=== PATIENT | male | born 1945 | race African-American/Black ===

== ENCOUNTER 2019-02-17 17:24 | Inpatient (IN) | payer MEDICARE, MEDICAID ==
[~2019-02-17] VITALS: Ht 175.3 cm; Wt 64.0 kg
[2019-02-17] MEDS ORDERED: METHYLPREDNISOLONE SOD SUCC 125 MG/2 ML VIAL IV STA (17:44)
[2019-02-17] MEDS ORDERED: ALBUTEROL (0.083%) 2.5MG/3ML NEB HHN STA ×2 (17:44→21:53)
[2019-02-17] MEDS ORDERED: IPRATROPIUM BROMIDE (0.02%) 0.5MG/2.5ML NEB HHN STA (17:44)
[2019-02-17] MEDS ORDERED: SODIUM CHLORIDE 0.9% 1000ML BAG (SEPSIS BOLUS) IV ONE (17:45)
[2019-02-17] MEDS ORDERED: LEVOFLOXACIN 750MG PREMIX 150 ML IV ONE (17:45)
[2019-02-17 18:21] LABS: BASOPHILS % 0.6 % (0.0-2.0); EOSINOPHILS % 0.1 % (0.0-5.0); HEMATOCRIT. 36.7 % (42.0-52.0); LYMPHOCYTES % 10.2 % (20.0-50.0); MEAN CORPUSCULAR HEMOGLOBIN 28.4 pg (28.0-32.0); MEAN CORPUSCULAR VOLUME 87.2 fL (80.0-94.0); MEAN PLATELET VOLUME 8.3 fl (7.4-10.4); MONOCYTES % 10.9 % (2.0-8.0); NEUTROPHILS % 78.2 % (40.0-76.0); PLATELET 206 x1000/uL (130-400); RED BLOOD CELL COUNT 4.21 mill/uL (4.7-6.1); RED CELL DISTRIBUTION WIDTH 14.6 % (11.6-14.6)
[2019-02-17 18:28] LABS: INR 1.1; PARTIAL THROMBOPLASTIN TIME 31.5 sec (23.4-31.0); PROTHROMBIN TIME 11.7 sec (9.6-11.0)
[2019-02-17 18:31] LABS: CHLORIDE 99 mEq/L (98-107)
[2019-02-17] MEDS ORDERED: ALBU2.5V13 IH (23:43)
[2019-02-17] MEDS ORDERED: VERA80TA2 PO (23:43)
[2019-02-17] MEDS ORDERED: ASPI-1158 PO (23:43)
[2019-02-18] VITALS (7 sets, daily range): BP systolic 113–148; BP diastolic 59–84
[2019-02-18] MEDS ORDERED: ONDANSETRON HCL 4MG/2ML INJ IV PRN (00:30)
[2019-02-18] MEDS ORDERED: ACETAMINOPHEN 325MG TABLET PO PRN (00:30)
[2019-02-18] MEDS ORDERED: IPRATROPIUM/ALBUTEROL 0.5-3(2.5)MG/3ML NEB HHN PRN (00:30)
[2019-02-18 03:04] LABS: HEMATOCRIT. 35.9 % (42.0-52.0); HEMOGLOBIN. 11.9 g/dL (14.0-18.0); MEAN CORPUSCULAR HEMOGLOBIN 28.7 pg (28.0-32.0); MEAN CORPUSCULAR VOLUME 86.9 fL (80.0-94.0); MEAN PLATELET VOLUME 8.5 fl (7.4-10.4); PLATELET 177 x1000/uL (130-400); RED BLOOD CELL COUNT 4.14 mill/uL (4.7-6.1); RED CELL DISTRIBUTION WIDTH 14.5 % (11.6-14.6)
[2019-02-18 03:21] LABS: CREATINE KINASE MB FRACTION 3.7 ng/mL (0.5-3.6)
[2019-02-18 03:56] LABS: HEPATITIS B SURFACE ANTIGEN NEGATIVE
[2019-02-18 04:26] LABS: HEPATITIS A AB IGM NEGATIVE (NEGATIVE)
[2019-02-18] MEDS: IPRATROPIUM/ALBUTEROL 0.5-3(2.5)MG/3ML NEB HHN SCH ×5 (04:27→21:32)
[2019-02-18] MEDS: METHYLPREDNISOLONE SOD SUCC 40 MG/ML VIAL IV SCH ×3 (05:25→21:12)
[2019-02-18] MEDS: PANTOPRAZOLE 40MG DR TABLET PO SCH (05:25)
[2019-02-18 05:41] LABS: PLATELET ESTIMATE NORMAL
[2019-02-18] MEDS: BUDESONIDE 0.5MG/2ML NEB HHN SCH ×2 (09:08→21:32)
[2019-02-18] MEDS: ENOXAPARIN 40MG/0.4ML SYR SUBCUT SCH (09:52)
[2019-02-18 10:34] LABS: CLARITY URINE CLEAR (CLEAR); COLOR URINE YELLOW (YELLOW); KETONES URINE TRACE (NEGATIVE); LEUKOCYTE ESTERASE URINE NEGATIVE (NEGATIVE); NITRITE URINE NEGATIVE (NEGATIVE); OCCULT BLOOD URINE TRACE (NEGATIVE); PH URINE 6.5 (4.5-8.0); PROTEIN URINE NEGATIVE (NEGATIVE)
[2019-02-18 11:51] LABS: *BARBITURATES SCREEN URINE NEGATIVE (NEGATIVE); *BENZODIAZEPINES SCREEN URINE NEGATIVE (NEGATIVE)
[2019-02-18 11:52] LABS: *COCAINE SCREEN URINE NEGATIVE (NEGATIVE); CANNABINOID URINE SCREEN NEGATIVE (NEGATIVE); METHADONE URINE SCREEN PRESUMTIVE POSITIVE (NEGATIVE); OPIATES URINE SCREEN PRESUMTIVE POSITIVE (NEGATIVE); PHENCYCLIDINE URINE SCREEN NEGATIVE (NEGATIVE)
[2019-02-18 12:03] LABS: *AMPHETAMINES SCREEN URINE NEGATIVE (NEGATIVE)
[2019-02-18 12:12] LABS: CREATINE KINASE 589 IU/L (39-308)
[2019-02-18 12:13] LABS: CREATINE KINASE MB FRACTION 3.2 ng/mL (0.5-3.6)
[2019-02-18] MEDS ORDERED: BISACODYL 5MG TABLET PO PRN (15:30)
[2019-02-18] MEDS ORDERED: LACTULOSE 20G/30ML UDC PO NR (15:39)
[2019-02-18] MEDS: DOCUSATE SODIUM 250MG CAPSULE PO SCH (16:35)
[2019-02-19] VITALS: BP 149/80
[2019-02-19] MEDS: IPRATROPIUM/ALBUTEROL 0.5-3(2.5)MG/3ML NEB HHN SCH ×6 (01:55→21:13)
[2019-02-19 04:00] VITALS: BP 150/81
[2019-02-19] MEDS: METHYLPREDNISOLONE SOD SUCC 40 MG/ML VIAL IV SCH (06:43)
[2019-02-19] MEDS: PANTOPRAZOLE 40MG DR TABLET PO SCH (06:43)
[2019-02-19 08:00] VITALS: BP 140/59
[2019-02-19] MEDS: BUDESONIDE 0.5MG/2ML NEB HHN SCH ×3 (08:50→21:13)
[2019-02-19] MEDS: ENOXAPARIN 40MG/0.4ML SYR SUBCUT SCH (09:29)
[2019-02-19] MEDS: DOCUSATE SODIUM 250MG CAPSULE PO SCH (09:29)
[2019-02-19 12:00] VITALS: BP 125/72
[2019-02-19 16:00] VITALS: BP 149/85
[2019-02-19] MEDS ORDERED: METHADONE HCL 10MG TABLET PO SCH (17:30)
[2019-02-19 20:00] VITALS: BP 145/80
[2019-02-20] VITALS (13 sets, daily range): BP systolic 124–171; BP diastolic 64–129
[2019-02-20] MEDS: IPRATROPIUM/ALBUTEROL 0.5-3(2.5)MG/3ML NEB HHN SCH ×7 (01:01→21:20)
[2019-02-20 04:14] LABS: BG BASE EXCESS 0.5 mmol/L (-2.0-2.0); BG CARBOXYHEMOGLOBIN 0.6 % (0.5-1.5); BG FRACTION INSPIRED OXYGEN 100; BG HCO3 ACT 29.1 mmol/L (22.0-26.0); BG METHEMOGLOBIN 0.2 % (0.0-1.5); BG OXYHEMOGLOBIN 98.2 % (94.0-97.0); BG PCO2 65.3 mmHg (35.0-45.0); BG PH 7.267 (7.350-7.450); BG PO2 180.8 mmHg (75.0-100.0); BG SAMPLE SITE LEFT RADIAL; BG TOTAL HEMOGLOBIN 14.2 g/dL (12.0-18.0); BG VENT MODE MASK - SIMPLE
[2019-02-20] MEDS: ENOXAPARIN 40MG/0.4ML SYR SUBCUT SCH (08:45)
[2019-02-20] MEDS: FAMOTIDINE 20MG TABLET PO SCH ×2 (08:45→21:23)
[2019-02-20] MEDS: DOCUSATE SODIUM 250MG CAPSULE PO SCH (08:45)
[2019-02-20] MEDS: BUDESONIDE 0.5MG/2ML NEB HHN SCH ×2 (08:52→21:20)
[2019-02-20] MEDS ORDERED: PREDNISONE 20MG TABLET PO SCH (09:00)
[2019-02-20] MEDS ORDERED: METHADONE HCL 5MG TABLET PO SCH (09:00)
[2019-02-20] MEDS: METHYLPREDNISOLONE SOD SUCC 125 MG/2 ML VIAL IV SCH ×4 (11:30→22:02)
[2019-02-20] MEDS ORDERED: TERBUTALINE SULFATE 1MG/ML VIAL SUBCUT SCH (12:00)
[2019-02-20 14:47] LABS: HEMOGLOBIN. 13.6 g/dL (14.0-18.0); MEAN CORPUSCULAR HEMOGLOBIN 28.4 pg (28.0-32.0); MEAN CORPUSCULAR VOLUME 87.4 fL (80.0-94.0); MEAN PLATELET VOLUME 8.4 fl (7.4-10.4); PLATELET 233 x1000/uL (130-400); RED CELL DISTRIBUTION WIDTH 14.5 % (11.6-14.6)
[2019-02-20 15:03] LABS: CHLORIDE 102 mEq/L (98-107)
[2019-02-20 19:33] LABS: PLATELET ESTIMATE NORMAL
[2019-02-20] MEDS: AMLODIPINE 5MG TABLET PO SCH (21:26)
[2019-02-21] VITALS (12 sets, daily range): BP systolic 126–169; BP diastolic 47–131
[2019-02-21] MEDS: IPRATROPIUM/ALBUTEROL 0.5-3(2.5)MG/3ML NEB HHN SCH ×5 (00:36→20:42)
[2019-02-21] MEDS: CLONIDINE 0.1MG TABLET PO PRN ×2 (00:46→06:17)
[2019-02-21] MEDS: METHYLPREDNISOLONE SOD SUCC 125 MG/2 ML VIAL IV SCH (06:02)
[2019-02-21] MEDS: DOCUSATE SODIUM 250MG CAPSULE PO SCH (08:45)
[2019-02-21] MEDS: METHADONE HCL 10MG TABLET PO SCH (08:51)
[2019-02-21] MEDS: AMLODIPINE 5MG TABLET PO SCH ×3 (09:00→21:43)
[2019-02-21] MEDS: ENOXAPARIN 40MG/0.4ML SYR SUBCUT SCH (09:00)
[2019-02-21] MEDS: FAMOTIDINE 20MG TABLET PO SCH ×3 (09:00→21:43)
[2019-02-21] MEDS: BUDESONIDE 0.5MG/2ML NEB HHN SCH (09:30)
[2019-02-21] MEDS: PREDNISONE 20MG TABLET PO SCH (17:20)
[2019-02-21] MEDS: ZOLPIDEM TARTRATE 5MG TABLET PO PRN ×2 (21:43→21:46)
[2019-02-22] VITALS (14 sets, daily range): BP systolic 110–165; BP diastolic 62–112
[2019-02-22] MEDS: IPRATROPIUM/ALBUTEROL 0.5-3(2.5)MG/3ML NEB HHN SCH ×6 (00:38→20:12)
[2019-02-22 06:51] LABS: HEMATOCRIT. 41.4 % (42.0-52.0); HEMOGLOBIN. 13.8 g/dL (14.0-18.0); MEAN CORPUSCULAR HEMOGLOBIN 28.8 pg (28.0-32.0); MEAN CORPUSCULAR VOLUME 86.4 fL (80.0-94.0); MEAN PLATELET VOLUME 8.7 fl (7.4-10.4); PLATELET 240 x1000/uL (130-400); RED BLOOD CELL COUNT 4.79 mill/uL (4.7-6.1); RED CELL DISTRIBUTION WIDTH 14.7 % (11.6-14.6)
[2019-02-22 06:54] LABS: CHLORIDE 99 mEq/L (98-107)
[2019-02-22] MEDS: DOCUSATE SODIUM 250MG CAPSULE PO SCH (09:00)
[2019-02-22] MEDS: ENOXAPARIN 40MG/0.4ML SYR SUBCUT SCH (09:00)
[2019-02-22] MEDS: AMLODIPINE 5MG TABLET PO SCH ×2 (09:00→20:34)
[2019-02-22] MEDS: FAMOTIDINE 20MG TABLET PO SCH ×2 (09:00→20:34)
[2019-02-22] MEDS: METHADONE HCL 10MG TABLET PO SCH (09:32)
[2019-02-22] MEDS: PREDNISONE 20MG TABLET PO SCH ×3 (09:33→17:00)
[2019-02-22 16:40] LABS: PLATELET ESTIMATE NORMAL
== END 2019-02-22 21:53 | disposition home or self-care (01) | DRG 133 ==
LOC: ER 17:27 → 5WST 20:06 → EDBEDREQ 20:09 → EDBEDREQTM 20:09 → ENRESERV 21:51 → 5WST 23:21 → MICUSO 02-20 11:36 → 5EST 02-20 16:55
PROVIDERS: ADMIT Internal Medicine; ATTEND Internal Medicine
PROC: 5A09357 Assistance with Respiratory Ventilation, Less than 24 Consecutive Hours, Continuous Positive Airway Pressure (ICD-10-PCS; principal; 2019-02-20)
DX: J96.00 Acute respiratory failure, unspecified whether with hypoxia or hypercapnia (principal); M62.82 Rhabdomyolysis; Z99.81 Dependence on supplemental oxygen; J44.1 Chronic obstructive pulmonary disease with (acute) exacerbation; F11.20 Opioid dependence, uncomplicated; D64.9 Anemia, unspecified; I10 Essential (primary) hypertension; B19.20 Unspecified viral hepatitis C without hepatic coma; K59.00 Constipation, unspecified; Z60.2 Problems related to living alone; Z87.01 Personal history of pneumonia (recurrent); Z86.19 Personal history of other infectious and parasitic diseases; Z87.891 Personal history of nicotine dependence; Z91.19 Patient's noncompliance with other medical treatment and regimen
CPT/HCPCS: 36415; 36600; 71045; 80048; 80061; 80305; 82375; 82550; 82553; 82805; 82962; 83605; 83735; 84145; 84484; 86705; 86709; 86803; 87340; 93005; 93970; 94640; 94644; 94660; 97162; 99285; J1650; J1956; J2920; J2930; J3105; J7030; J7512; J7611; J7620; J7626

== ENCOUNTER 2020-07-18 01:08 | Emergency (ER) | payer MEDICARE, MEDICAID ==
[~2020-07-18] VITALS: Ht 167.6 cm; Wt 68.0 kg
[~2020-07-18 01:08] MED LIST: ALBU2.5V13 IH; HYDR-3280 MT; METH10OR PO; VERA80TA7 PO
[2020-07-18] MEDS ORDERED: PREDNISONE 20MG TABLET PO STA (01:18)
[2020-07-18] MEDS ORDERED: IPRATROPIUM BROMIDE (0.02%) 0.5MG/2.5ML NEB HHN STA (01:18)
[2020-07-18] MEDS ORDERED: ALBUTEROL (0.083%) 2.5MG/3ML NEB HHN STA (01:18)
[2020-07-18] MEDS ORDERED: MAGNESIUM 2 G PREMIX 50 ML IV ONE (01:30)
[2020-07-18 02:10] LABS: HEMATOCRIT 40.8 % (42.0-52.0); HEMOGLOBIN 13.2 g/dL (14.0-18.0); MEAN CORPUSCULAR HEMOGLOBIN 28.7 pg (28.0-32.0); MEAN CORPUSCULAR VOLUME 88.4 fL (80.0-94.0); PLATELET 175 x1000/uL (130-400); RED BLOOD CELL COUNT 4.61 mill/uL (4.7-6.1); RED CELL DISTRIBUTION WIDTH 14.3 % (11.6-14.6)
[2020-07-18 02:50] LABS: CHLORIDE 99 mEq/L (98-107)
[2020-07-18 07:19] VITALS: BP 142/91
== END 2020-07-18 08:31 | disposition home or self-care (01) ==
LOC: ER 01:08
DX: J44.1 Chronic obstructive pulmonary disease with (acute) exacerbation (principal); I11.0 Hypertensive heart disease with heart failure; I50.9 Heart failure, unspecified
CPT/HCPCS: 36415; 71045; 80053; 83735; 85027; 94640; 96365; 96366; 99285; J3475; J7512

== ENCOUNTER 2021-07-06 16:44 | Emergency (ER) | payer MEDICARE, MEDICAID ==
[~2021-07-06] VITALS: Ht 177.8 cm; Wt 80.0 kg
[~2021-07-06 16:44] MED LIST changes: -HYDR-3280 MT; +HYDR-4350 MT
[2021-07-06] MEDS ORDERED: METHYLPREDNISOLONE SOD SUCC 125 MG/2 ML VIAL IV STA (17:26)
[2021-07-06] MEDS ORDERED: IPRATROPIUM BROMIDE (0.02%) 0.5MG/2.5ML NEB HHN STA (17:26)
[2021-07-06 18:12] LABS: BASOPHILS % 0.9 % (0.0-2.0); EOSINOPHILS % 1.3 % (0.0-5.0); HEMATOCRIT. 40.2 % (42.0-52.0); HEMOGLOBIN. 13.1 g/dL (14.0-18.0); LYMPHOCYTES % 23.9 % (20.0-50.0); MEAN CORPUSCULAR HEMOGLOBIN 29.8 pg (28.0-32.0); MEAN CORPUSCULAR VOLUME 91.7 fL (80.0-94.0); MEAN PLATELET VOLUME 9.1 fl (7.4-10.4); NEUTROPHILS % 63.9 % (40.0-76.0); PLATELET 180 x1000/uL (130-400); RED BLOOD CELL COUNT 4.38 mill/uL (4.7-6.1); RED CELL DISTRIBUTION WIDTH 14.6 % (11.6-14.6)
[2021-07-06 18:22] LABS: CHLORIDE 103 mEq/L (98-107)
[2021-07-06 18:25] LABS: INR 1.1; PROTHROMBIN TIME 11.7 sec (9.6-11.0)
[2021-07-06] MEDS: ALBUTEROL (0.083%) 2.5MG/3ML NEB HHN SCH ×3 (18:25→18:53)
[2021-07-06 18:27] LABS: ETHANOL BLOOD < 10 mg/dL
[2021-07-06 18:28] LABS: C REACTIVE PROTEIN QUANT < 0.2 mg/L (0.0-3.0)
[2021-07-06] MEDS ORDERED: PRED10TA23 MT (19:10)
[2021-07-06] MEDS ORDERED: ALBU05 NEB (19:10)
[2021-07-06] MEDS ORDERED: ALBU6.7H9 INH (19:10)
[2021-07-06 19:43] LABS: CLARITY URINE CLEAR (CLEAR); COLOR URINE YELLOW (YELLOW); KETONES URINE NEGATIVE (NEGATIVE); LEUKOCYTE ESTERASE URINE 2+ (NEGATIVE); NITRITE URINE NEGATIVE (NEGATIVE); OCCULT BLOOD URINE 2+ (NEGATIVE); PROTEIN URINE TRACE (NEGATIVE); SPECIFIC GRAVITY URINE 1.015 (1.005-1.030)
[2021-07-06 20:05] LABS: *AMPHETAMINES SCREEN URINE NEGATIVE (NEGATIVE); *BARBITURATES SCREEN URINE NEGATIVE (NEGATIVE); *BENZODIAZEPINES SCREEN URINE NEGATIVE (NEGATIVE); *COCAINE SCREEN URINE NEGATIVE (NEGATIVE); CANNABINOID URINE SCREEN NEGATIVE (NEGATIVE); PHENCYCLIDINE URINE SCREEN NEGATIVE (NEGATIVE)
[2021-07-06 20:06] LABS: METHADONE URINE SCREEN NEGATIVE (NEGATIVE); OPIATES URINE SCREEN PRESUMTIVE POSITIVE (NEGATIVE)
[2021-07-06 21:00] VITALS: BP 145/85
== END 2021-07-06 21:25 | disposition home or self-care (01) ==
LOC: ER 16:44 → EDBEDREQ 17:34 → ER 21:25 → CANBEDREQ 22:18
DX: J44.1 Chronic obstructive pulmonary disease with (acute) exacerbation (principal); D64.9 Anemia, unspecified; I11.0 Hypertensive heart disease with heart failure; I50.9 Heart failure, unspecified; Z87.891 Personal history of nicotine dependence; Z79.899 Other long term (current) drug therapy; Z20.822 Contact with and (suspected) exposure to COVID-19
CPT/HCPCS: 36415; 71045; 80053; 80305; 81003; 82728; 83605; 83690; 84145; 84484; 85025; 85610; 86140; 86850; 86900; 86901; 87040; 87086; 87426; 93005; 94640; 99285; G0480; 80320